=== PATIENT | male | born 1990 | race Two or more races ===

== ENCOUNTER 2020-11-16 19:34 | Observation (INO) ==
[2020-11-16 20:15] VITALS: BMI 24.3
[2020-11-16] MEDS ORDERED: NS 1000 ML 1,000 ML IV ONE (20:45)
[2020-11-16] MEDS ORDERED: NS 1000 ML 1,000 ML ONE (20:48)
--- NOTE | 2020-11-16 20:57 | DR.PSYCH ---
HPI Time Seen Time Seen by Provider: 11/16/20 20:44 PCP Primary Care Physician: ADRIANNA HPI Comment HPI Comment: He started hallucinating over the week-end as below; he sees things at night in the ceiling and hears voices telling him his friends are going to kill him; he's had n/v/d for the past two days and hasn't eaten in several days; this has occurred once before and he received fluids and was better; he works outside in the heat and reports "cramping" per his friend who translates what we don't understand; this is mainly along his sides; no abd pain, cough, sob or wheezing; he does have bilateral upper chest pain periodically. Complaint Chief Complaint:: PT STATES" THE [place] ARE TELLING ME IN MY HEAD. MY FRIEND IS GOING TO KILL ME AND HER" Source History Provided: Patient Mode of Arrival Mode of Arrival: Ambulatory Timing Onset of Chief Complaint: 11/02/20 PMH PMH Past Medical History: No Past Surgical History: No Family History History of Family Medical Conditions: No Social History Does any household member use tobacco: No Alcohol Use: Heavy and DAILY Do you use any recreational Drugs:: No Lives With: Significant Other Lives Where: Home Infectious screening In the last 2 months have you had wt loss of >10#?: NO Have you had fever, night sweats or hemotysis?: No Have you traveled outside the country in the last 6 months?: No Isolation: Standard ROS Review of Systems Eyes: No Symptoms Reported ENTM: No Symptoms Reported Respiratoy: No Symptoms Reported Gastrointestinal/Abdominal: No Symptoms Reported Genitourinary: No Symptoms Reported Neurological: No Symptoms Reported Integumentary: No Symptoms Reported Hematologic/Lymphatic: No Symptoms Reported Endocrine: No Symptoms Reported PE Vitals Vitals: Temperature 100.4 F Pulse Rate 105 Respiratory Rate 20 Blood Pressure 146/75 O2 Sat by Pulse Oximetry 97 General Limitations: Language Barrier General Appearance: Alert and In No Apparent Distress Head Head Exam: Normal Inspection Eyes Eye exam: Normal Appearance Pupils: Regular, Round: Bilateral Sclera/Conjunctival: Normal Inspection: Bilateral ENT ENT Exam: Normal Exam Neck Neck Exam: Normal Inspection Chest Chest Inspection: Normal Inspection Respiratory Respiratory Exam: Normal Lung Sounds Bilat Respiratory Exam: Bilateral: Clear to Auscultation Cardiovascular Cardiovascular Exam: Normal Rhythm and Tachycardia Abdominal Exam Abdominal Exam: Normal Inspection, Normal Bowel Sounds and Soft Extremities Extremities Exam: Normal Inspection Back Back Exam: Normal Inspection Neurologic Neurological Exam: Alert and Oriented X3 Patient Oriented To: Person, Place and Time Speech: Fluid Speech Psychiatric Psychiatric Exam: Normal Affect and Normal Mood Expanded Psychiatric Exam: Poor Eye Contact Skin Skin Exam: Warm, Dry, Intact and Normal Color COURSE Reevaluation 1st: Unchanged (alert, conversive) Consultation Consultation Comments: Dr De Leon accepts admission. ROR Labs Reviewed Laboratory Results Reviewed?: Yes Result Diagrams: 11/17/20 03:55 11/17/20 03:55 Laboratory: WBC 10.8 X10^3/uL (3.6-10.0) H 11/16/20 20:50 RBC 4.76 X10^6/uL (4.7-6.0) 11/16/20 20:50 Hgb 14.2 g/dL (13.5-18.0) 11/16/20 20:50 Hct 41.2 % (42.0-54.0) L 11/16/20 20:50 MCV 86.5 fL (80.0-100.0) 11/16/20 20:50 MCH 29.9 pg (27.0-34.0) 11/16/20 20:50 MCHC 34.5 g/dL (33.0-35.0) 11/16/20 20:50 RDW 19.5 % (11.6-16.5) H 11/16/20 20:50 Plt Count 116 X10^3/uL (150.0-450.0) L 11/16/20 20:50 MPV 8.3 fL (7.4-11.0) 11/16/20 20:50 Neut % (Auto) 75.9 % (42.0-75.0) H 11/16/20 20:50 Lymph % (Auto) 16.7 % (21.0-51.0) L 11/16/20 20:50 [place] % (Auto) 7.0 % (0.0-13.0) 11/16/20 20:50 Eos % (Auto) 0.1 % (0.9-2.9) L 11/16/20 20:50 Baso % (Auto) 0.3 % (0.2-1.0) 11/16/20 20:50 Neut # (Auto) 8.2 x10^3/uL (2.2-4.8) H 11/16/20 20:50 Lymph # (Auto) 1.8 X10^3/uL (1.3-2.9) 11/16/20 20:50 [place] # (Auto) 0.8 x10^3/uL (0.3-0.8) 11/16/20 20:50 Eos # (Auto) 0.0 x10^3/uL (0.0-0.2) 11/16/20 20:50 Baso # (Auto) 0.0 X10^3/uL (0.0-0.1) 11/16/20 20:50 Absolute Nucleated RBC 0.0 /100WBC 11/16/20 20:50 Sodium 129 mmol/L (136-145) L 11/16/20 20:50 Corrected Sodium 129 mmol/L (136-145) L 11/16/20 20:50 Potassium 3.0 mmol/L (3.5-5.1) L* 11/16/20 20:50 Chloride 89 mmol/L (98-107) L 11/16/20 20:50 Carbon Dioxide 20.4 mmol/L (21-32) L 11/16/20 20:50 BUN 15 mg/dL (7-18) 11/16/20 20:50 Creatinine 1.03 mg/dL (0.70-1.30) 11/16/20 20:50 Est GFR (MDRD) Af Amer > 60 (>60) 11/16/20 20:50 Est GFR (MDRD) Non-Af > 60 (>60) 11/16/20 20:50 Glucose 118 mg/dL (65-99) H 11/16/20 20:50 Calcium 9.8 mg/dL (8.5-10.1) 11/16/20 20:50 Corrected Calcium TNP 11/16/20 20:50 Total Bilirubin 1.00 mg/dL (0.2-1.0) 11/16/20 20:50 AST 102 Units/L (15-37) H 11/16/20 20:50 ALT 126 Units/L (12-78) H 11/16/20 20:50 Alkaline Phosphatase 93 Units/L (46-116) 11/16/20 20:50 Creatine Kinase 332 Units/L (39-308) H 11/16/20 20:50 Total Protein 10.1 g/dL (6.4-8.2) H 11/16/20 20:50 Albumin 5.0 g/dL (3.4-5.0) 11/16/20 20:50 Globulin 5.1 g/dL (2.5-4.5) H 11/16/20 20:50 Albumin/Globulin Ratio 1.0 Ratio (1.1-2.1) L 11/16/20 20:50 Specimen Type Clean catch urine 11/16/20 20:45 Urine Color Straw (YELLOW) 11/16/20 20:45 Urine Appearance Clear (CLEAR) 11/16/20 20:45 Urine pH 5.0 (5.0 - 8.0) 11/16/20 20:45 Ur Specific [place] 1.010 (1.000-1.030) 11/16/20 20:45 Urine Protein 3+ (NEGATIVE) 11/16/20 20:45 Urine Glucose (UA) Negative (NEGATIVE) 11/16/20 20:45 Urine Ketones Negative (NEGATIVE) 11/16/20 20:45 Urine Occult Blood 2+ (NEGATIVE) 11/16/20:45 Urine Nitrite Negative (NEGATIVE) 11/16/20:45 Urine Bilirubin Negative (NEGATIVE) 11/16/20 20:45 Urine Urobilinogen Normal (NORMAL) 11/16/20 20:45 Ur Leukocyte Esterase Negative (NEGATIVE) 11/16/20 20:45 Urine RBC 0-2 /HPF (0-3) 11/16/20 20:45 Urine WBC 0-2 /HPF (0-5) 11/16/20 20:45 Ur Squamous Epith Cells Rare /HPF (NEGATIVE) 11/16/20 20:45 Urine Bacteria Negative /HPF (NEGATIVE) 11/16/20 20:45 Ur Culture Indicated? No/not indicated 11/16/20 20:45 Urine Opiates Screen Negative (NEG=<300) 11/16/20 20:45 Urine Methadone Screen Negative (NEG=<300) 11/16/20 20:45 Ur Barbiturates Screen Negative (NEG=<200) 11/16/20 20:45 Ur Phencyclidine Scrn Negative (NEG=<25) 11/16/20 20:45 Ur Amphetamines Screen Negative (NEG=<1000) 11/16/20 20:45 U Benzodiazepines Scrn Negative (NEG=<200) 11/16/20 20:45 Urine Cocaine Screen Negative (NEG=<300) 11/16/20 20:45 U Marijuana (THC) Screen Negative (NEG=<50) 11/16/20 20:45 Ethyl Alcohol mg/dL 245 mg/dL (0-19.9) H 11/16/20 20:50 SARS CoV-2 RNA Rapid THERESA Negative (NEGATIVE) 11/16/20 22:18 Opioid Opioid Risk Tool Total: 0 Total Score Risk Category: Low Risk Copyright: Chai ELLIS predicting aberrant behaviors Diagnosis Discharge Problem: Auditory hallucination, Acute hyponatremia, Acute hypokalemia, Acute dehydration Instructions Forms: Patient Portal Social Distancing
[2020-11-16 21:01] LABS: BILIRUBIN,URINE NEGATIVE (NEGATIVE); BLOOD/HEMOGLOBIN,URINE 2+ (NEGATIVE); GLUCOSE, URINE NEGATIVE (NEGATIVE); KETONES,URINE NEGATIVE (NEGATIVE); LEUKOCYTE ESTERASE ,URINE NEGATIVE (NEGATIVE); NITRITES,URINE NEGATIVE (NEGATIVE); PROTEIN,URINE 3+ (NEGATIVE); UROBILINOGEN,URINE NORMAL (NORMAL)
[2020-11-16 21:13] LABS: APPEARANCE,URINE CLEAR (CLEAR); COLOR,URINE STRAW (YELLOW)
[2020-11-16 21:14] LABS: BACTERIA,URINE NEGATIVE /HPF (NEGATIVE); RBC,URINE 0-2 /HPF (0-3); SQUAMOUS EPITHELIAL CELL,UR RARE /HPF (NEGATIVE)
[2020-11-16 21:24] LABS: BLOOD UREA NITROGEN 15 mg/dL (7-18); CALCIUM 9.8 mg/dL (8.5-10.1); CARBON DIOXIDE 20.4 mmol/L (21-32); CHLORIDE 89 mmol/L (98-107); COR NA(FOR HYPERGLY) 129 mmol/L (136-145); CREATININE 1.03 mg/dL (0.70-1.30); SODIUM 129 mmol/L (136-145); eGFR NON BLACK RACES > 60 (>60)
[2020-11-16 21:25] LABS: BASOPHILS % (AUTO) 0.3 % (0.2-1.0); EOSINOPHILS % (AUTO) 0.1 % (0.9-2.9); HEMATOCRIT 41.2 % (42.0-54.0); HEMOGLOBIN 14.2 g/dL (13.5-18.0); LYMPHOCYTES # (AUTO) 1.8 X10^3/uL (1.3-2.9); LYMPHOCYTES % (AUTO) 16.7 % (21.0-51.0); MEAN CORPUSCULAR HEMOGLOBIN 29.9 pg (27.0-34.0); MEAN CORPUSCULAR HGB CONC 34.5 g/dL (33.0-35.0); MEAN CORPUSCULAR VOLUME 86.5 fL (80.0-100.0); MEAN PLATELET VOLUME 8.3 fL (7.4-11.0); MONOCYTES # (AUTO) 0.8 x10^3/uL (0.3-0.8); NEUTROPHILS # (AUTO) 8.2 x10^3/uL (2.2-4.8); NEUTROPHILS % (AUTO) 75.9 % (42.0-75.0); PLATELET COUNT 116 X10^3/uL (150.0-450.0); RED BLOOD COUNT 4.76 X10^6/uL (4.7-6.0); RED CELL DISTRIBUTION WIDTH 19.5 % (11.6-16.5); WHITE BLOOD COUNT 10.8 X10^3/uL (3.6-10.0)
[2020-11-16 21:29] LABS: ALANINE AMINOTRANSFERASE 126 Units/L (12-78); ALKALINE PHOSPHATASE 93 Units/L (46-116); ASPARTATE AMINO TRANSFERASE 102 Units/L (15-37); TOTAL PROTEIN 10.1 g/dL (6.4-8.2)
[2020-11-16] MEDS ORDERED: K-DUR TAB 20 MEQ PO STA (22:27)
[2020-11-16] MEDS ORDERED: K-DUR TAB 20 MEQ PO ONE (22:29)
[2020-11-16] MEDS ORDERED: NS 1000 ML 1,000 ML IV SCH (23:00)
[2020-11-17 05:27] LABS: BASOPHILS % (AUTO) 0.6 % (0.2-1.0); EOSINOPHILS # (AUTO) 0.2 x10^3/uL (0.0-0.2); EOSINOPHILS % (AUTO) 2.9 % (0.9-2.9); HEMATOCRIT 38.2 % (42.0-54.0); HEMOGLOBIN 12.7 g/dL (13.5-18.0); LYMPHOCYTES # (AUTO) 1.4 X10^3/uL (1.3-2.9); LYMPHOCYTES % (AUTO) 21.4 % (21.0-51.0); MEAN CORPUSCULAR HEMOGLOBIN 29.2 pg (27.0-34.0); MEAN CORPUSCULAR HGB CONC 33.1 g/dL (33.0-35.0); MEAN CORPUSCULAR VOLUME 88.1 fL (80.0-100.0); MEAN PLATELET VOLUME 8.8 fL (7.4-11.0); MONOCYTES # (AUTO) 0.6 x10^3/uL (0.3-0.8); NEUTROPHILS # (AUTO) 4.2 x10^3/uL (2.2-4.8); NEUTROPHILS % (AUTO) 65.1 % (42.0-75.0); PLATELET COUNT 101 X10^3/uL (150.0-450.0); RED BLOOD COUNT 4.34 X10^6/uL (4.7-6.0); RED CELL DISTRIBUTION WIDTH 19.3 % (11.6-16.5); WHITE BLOOD COUNT 6.4 X10^3/uL (3.6-10.0)
[2020-11-17 05:43] LABS: ALANINE AMINOTRANSFERASE 121 Units/L (12-78); ALBUMIN 4.2 g/dL (3.4-5.0); ALKALINE PHOSPHATASE 75 Units/L (46-116); ASPARTATE AMINO TRANSFERASE 140 Units/L (15-37); BLOOD UREA NITROGEN 12 mg/dL (7-18); CALCIUM 8.8 mg/dL (8.5-10.1); CARBON DIOXIDE 21.4 mmol/L (21-32); CHLORIDE 101 mmol/L (98-107); CREATININE 0.76 mg/dL (0.70-1.30); SODIUM 137 mmol/L (136-145); TOTAL PROTEIN 8.5 g/dL (6.4-8.2); eGFR NON BLACK RACES > 60 (>60)
[2020-11-17 06:17] LABS: GIANT PLATELET RARE; PLATELET MORPHOLOGY COMMENT ABNORMAL (NORMAL)
[2020-11-17 08:19] VITALS: BP 125/80
[2020-11-17] MEDS ORDERED: POTASSIUM CHLORIDE LIQ 20 MEQ UDC PO SCH (09:00)
== END 2020-11-17 11:45 | disposition home or self-care (01) ==
LOC: MED/SURG 19:53 → ER 19:53 → MED/SURG 23:00
PROVIDERS: ADMIT Obstetrics & Gynecology Obstetrics; ATTEND Obstetrics & Gynecology Obstetrics
DX: F10.20 Alcohol dependence, uncomplicated; K70.0 Alcoholic fatty liver; E86.0 Dehydration; Z20.822 Contact with and (suspected) exposure to COVID-19; R44.0 Auditory hallucinations; E87.1 Hypo-osmolality and hyponatremia; E87.6 Hypokalemia; R94.5 Abnormal results of liver function studies